=== PATIENT | female | born 1965 | race African-American/Black ===

== ENCOUNTER 2020-08-03 10:53 | Outpatient (REF) | payer MEDICAID, SELFPAY ==
--- NOTE | 2020-08-03 10:57 | MM_ITS ---
EXAMINATION: MM SCREENING DIGITAL BREAST TOMOSYNTHESIS, BILATERAL CLINICAL INFORMATION: Screening. Asymptomatic. The lifetime risk of breast cancer based on the Tyrer-Cuzick Model is 12%. COMPARISON: Mammography: 07/27/2019, 07/30/2017, 01/27/2017 TECHNIQUE: Digital breast tomosynthesis is performed in both the craniocaudal and mediolateral oblique views along with computer-aided detection (CAD). Synthesized 2D images are generated from the tomosynthesis. FINDINGS: There are scattered areas of fibroglandular density (ACR BI-RADS breast composition Category b). There are no significant masses, abnormal calcifications, or other abnormalities. Parenchymal pattern is similar to prior exams. No significant changes. MM/MM tomosynthesis screening BI IMPRESSION: No mammographic evidence of malignancy. ASSESSMENT: BI-RADS 1: Negative RECOMMENDATION: Routine annual mammography screening. This patient's information was entered into a reminder system with a target due date for their next mammogram.
== END 2020-08-03 10:54 | disposition home or self-care (01) ==
LOC: HO.MAMMO 10:53
PROVIDERS: PCP Pediatrics; Visit Provider Pediatrics
DX: Z12.31 Encounter for screening mammogram for malignant neoplasm of breast (principal)
CPT/HCPCS: 77063; 77067

== ENCOUNTER 2021-12-01 08:27 | Outpatient (REF) | payer MEDICAID, SELFPAY ==
--- NOTE | ~2021-12-01 | MM_ITS ---
EXAMINATION: MM SCREENING DIGITAL BREAST TOMOSYNTHESIS, BILATERAL CLINICAL INFORMATION: Screening. Asymptomatic. The lifetime risk of breast cancer based on the Tyrer-Cuzick Model is 11%. COMPARISON: Mammography: 08/03/2020, 07/27/2019, 07/30/2017, 01/27/2017, 01/15/2017 TECHNIQUE: Digital breast tomosynthesis is performed in both the craniocaudal and mediolateral oblique views along with computer-aided detection (CAD). Synthesized 2D images are generated from the tomosynthesis. FINDINGS: There are scattered areas of fibroglandular density (ACR BI-RADS breast composition Category b). There are no significant masses, abnormal calcifications, or other abnormalities. Parenchymal pattern is similar to prior studies. The axilla and skin contours are unremarkable. No significant changes. MM/MM tomosynthesis screening BI IMPRESSION: No mammographic evidence of malignancy. ASSESSMENT: BI-RADS 1: Negative RECOMMENDATION: Routine annual mammography screening. This patient's information was entered into a reminder system with a target due date for their next mammogram.
== END 2021-12-01 08:28 | disposition home or self-care (01) ==
LOC: HO.MAMMO 08:27
PROVIDERS: PCP Pediatrics; Visit Provider Pediatrics
DX: Z12.31 Encounter for screening mammogram for malignant neoplasm of breast (principal)
CPT/HCPCS: 77063; 77067

== ENCOUNTER 2023-06-16 09:13 | Outpatient (REF) | payer MEDICAID, SELFPAY ==
[2023-06-16 14:43] LABS: Basophils Percent Auto 0.2 % (0-2); Eosinophils Absolute Auto 0.1 X10*3/uL (0.0-0.4); Eosinophils Percent Auto 1.3 % (0-4); Hematocrit 34.4 % (37.0-47.0); Hemoglobin 11.7 g/dl (12.0-16.0); Imm Gran Abs Auto 0.01 X10*3/uL (0.00-0.03); Imm Gran Pct Auto 0.2 % (0.0-0.4); MANUAL DIFF FLAG SCAN; Mean Corpuscular Hemoglobin 28.5 pg (27.0-33.0); Mean Corpuscular Volume 83.7 fL (80.0-98.0); Mean Platelet Volume 11.6 fL (9.4-12.3); Monocytes Absolute Auto 0.3 X10*3/uL (0.1-1.2); Monocytes Percent Auto 6.5 % (2-11); Neutrophils Absolute Auto 1.4 x10*3/uL (2.0-8.3); Neutrophils Percent Auto 28.8 % (45-73); Platelet Count 178 X10*3/uL (160-400); Red Blood Count 4.11 X10*6/uL (4.20-5.50); Red Cell Distribution Width 15.5 % (11.0-16.0); SCAN SMEAR FLAG 1; White Blood Count 4.8 X10*3/uL (4.8-10.8)
[2023-06-16 14:51] LABS: Alanine Aminotransferase 8 U/L (0-31); Albumin Level 4.3 g/dL (3.5-5.0); Alkaline Phosphatase 42 U/L (39-117); Anion Gap 13 (12-20); Aspartate Amino Transferase 16 U/L (5-31); Bilirubin Direct 0.1 mg/dL (0.0-0.5); Bilirubin Total 0.4 mg/dL (0.0-1.0); Blood Urea Nitrogen 15 mg/dL (9-16); Carbon Dioxide 26 mmol/L (22-29); Chloride 105 mmol/L (96-108); Cholesterol 156 mg/dL (<200); Estimated Glomerular Filt Rate > 60; Glucose Random 95 mg/dL (60-115); HDL Cholesterol 47 mg/dL (>40); LDL Cholesterol Calculated 91 mg/dL (<100); Potassium 3.4 mmol/L (3.3-5.1); Sodium 141 mmol/L (135-145); Total Protein 8.1 g/dL (6.5-8.0); Triglycerides 93 mg/dL (<150)
[2023-06-16 15:03] LABS: SLIDE REVIEW VERIFIED
[2023-06-16 15:10] LABS: TSH reflex Free T4 4.07 uIU/mL (0.32-4.0); Vitamin D 25-OH Total 101.3 ng/mL (>30)
[2023-06-16 16:32] LABS: Free T4 (Free Thyroxine) 0.86 ng/dL (0.71-1.85)
== END 2023-06-16 09:14 | disposition home or self-care (01) ==
LOC: HO.CHCLDS 09:13
PROVIDERS: Visit Provider Pediatrics
DX: I10 Essential (primary) hypertension (principal); E11.9 Type 2 diabetes mellitus without complications; F17.200 Nicotine dependence, unspecified, uncomplicated
CPT/HCPCS: 36415; 80048; 80061; 80076; 82306; 84439; 84443; 85025

== ENCOUNTER 2024-07-11 09:57 | Outpatient (REF) | payer MEDICAID, SELFPAY ==
[2024-07-11 14:42] LABS: MANUAL DIFF FLAG NO
[2024-07-11 14:47] LABS: Basophils Percent Auto 0.4 % (0-2); Eosinophils Absolute Auto 0.1 X10*3/uL (0.0-0.4); Eosinophils Percent Auto 1.3 % (0-4); Hematocrit 33.6 % (37.0-47.0); Hemoglobin 11.6 g/dl (12.0-16.0); Imm Gran Abs Auto 0.01 X10*3/uL (0.00-0.03); Imm Gran Pct Auto 0.2 % (0.0-0.4); Lymphocytes Absolute Auto 2.2 X10*3/uL (1.2-4.9); Lymphocytes Percent Auto 41.5 % (20-40); Mean Corpuscular HGB Conc 34.5 g/dl (31.0-35.0); Mean Corpuscular Hemoglobin 29.2 pg (27.0-33.0); Mean Corpuscular Volume 84.6 fL (80.0-98.0); Mean Platelet Volume 11.3 fL (9.4-12.3); Monocytes Absolute Auto 0.4 X10*3/uL (0.1-1.2); Monocytes Percent Auto 7.8 % (2-11); Neutrophils Absolute Auto 2.6 x10*3/uL (2.0-8.3); Neutrophils Percent Auto 48.8 % (45-73); Platelet Count 171 X10*3/uL (160-400); Red Blood Count 3.97 X10*6/uL (4.20-5.50); Red Cell Distribution Width 15.7 % (11.0-16.0); White Blood Count 5.2 X10*3/uL (4.8-10.8)
[2024-07-11 14:58] LABS: Estimated Average Glucose 117 mg/dL; Hemoglobin A1C 113.7271 umol/L; Hemoglobin A1c % 5.7 % (<6.0); Total Hemoglobin (HGBA1C) 2941.6846 umol/L
[2024-07-11 15:04] LABS: Alanine Aminotransferase 27 U/L (0-31); Albumin Level 4.3 g/dL (3.5-5.0); Alkaline Phosphatase 50 U/L (39-117); Anion Gap 12 (12-20); Aspartate Amino Transferase 33 U/L (5-31); Bilirubin Direct 0.1 mg/dL (0.0-0.5); Bilirubin Total 0.3 mg/dL (0.0-1.0); Blood Urea Nitrogen 15 mg/dL (9-16); Calcium 10.3 mg/dL (8.4-10.2); Carbon Dioxide 26 mmol/L (22-29); Chloride 106 mmol/L (96-108); Cholesterol 142 mg/dL (<200); Estimated Glomerular Filt Rate 52; Glucose Fasting 107 mg/dL (60-99); HDL Cholesterol 53 mg/dL (>40); LDL Cholesterol Calculated 70 mg/dL (<100); Sodium 140 mmol/L (135-145); Total Protein 8.3 g/dL (6.5-8.0); Triglycerides 99 mg/dL (<150)
[2024-07-11 15:25] LABS: Creatinine Urine 98.18 mg/dL; Microalbum/Creatinine Ratio Ur 13.2 ug/mg cr (<30)
[2024-07-11 15:28] LABS: Folate 11.5 ng/mL (> or = 4.0); Vitamin B12 532 pg/mL (200-900)
== END 2024-07-11 09:58 | disposition home or self-care (01) ==
LOC: HO.CHCLDS 09:57
PROVIDERS: Visit Provider Pediatrics
DX: E11.9 Type 2 diabetes mellitus without complications (principal); I10 Essential (primary) hypertension; F17.200 Nicotine dependence, unspecified, uncomplicated
CPT/HCPCS: 36415; 80048; 80061; 80076; 82043; 82306; 82570; 82607; 82746; 83036; 84443; 85025

== ENCOUNTER → 2024-08-08 09:15 | Outpatient (BNV) | payer MEDICAID, SELFPAY | PROVIDERS: PCP Pediatrics; Visit Provider Internal Medicine | DX: Z12.31 Encounter for screening mammogram for malignant neoplasm of breast (principal) | CPT/HCPCS: 77063; 77067 ==

== ENCOUNTER 2024-08-08 09:16 | Outpatient (REF) | payer MEDICAID, SELFPAY | END 2024-08-08 09:17 | disposition home or self-care (01) | LOC: HO.MAMMO 09:16 | PROVIDERS: PCP Pediatrics; Visit Provider Pediatrics | DX: Z12.31 Encounter for screening mammogram for malignant neoplasm of breast (principal) | CPT/HCPCS: 77063; 77067 ==

== ENCOUNTER 2024-09-12 18:14 | Outpatient (REF) | payer MEDICAID, SELFPAY ==
--- OUTSIDE RECORDS SUMMARY | 2024-09-12 20:04 | XMS_ITS | Encounter Summary ---
Author Organization [employer] Address [address] [facility] [address] [place] [address] Care Team Providers Care City Tax Auditor Name Role Phone Margaret Bergeron MD Primary Care Provider [phone] Encounter Details Date Type Department Care Team (Latest Contact Info) Description 09/12/2024 Travel Social History Tobacco Use Types Packs/Day Years Used Date Smoking Tobacco: Every Day Cigarettes Passive Smoke Exposure: Never Smokeless Tobacco: Former Alcohol Answer Date Recorded How often do you have a drink containing alcohol ? 2 07/11/2024 How many drinks containing a lcohol do you have on a typical day when you are drinking? 2 07/11/2024 How often do you have six or more drinks on one occasion? 2 07/11/2024 Depression Answer Date Recorded Patient Health Questionnaire-9 Score 16 07/11/2024 Patient Health Questionnaire-9 Score 16 07/11/2024 Last PHQ-9: Questionnaire Data Not on file 1 09/11/2023 Housing Stability Answer Date Recorded What is your housing situation today? I have elieser cabrales 05/02/[address] you li ve. Do you have problems with any of the following? None of the above 05/02/2024 Food Insecurity Answer Date Recorded Within the past 12 months, y ou worried that your food would run out before you got money to buy more: Never True 05/02/2024 Within the past 12 months,th e food you bought just didn't last and you didn't have enough money to get more: Never True Transportation Answer Date Recorded In the past 12 months, has l ack of transportation kept you from medical appts, meetings, work or from getting things needed for daily living? No 05/02/2024 Utilities Answer Date Recorded In the past 12 months, has t he electric, gas, oil or water company threatened to shut off services in your home? No 05/02/2024 Depression Answer Date Recorded Patient Health Questionnaire-2 Score 6 07/11/2024 Internet Access Answer Date Recorded Internet Access Q1 Yes 05/02/2024 Internet Access Q2 Not on file 05/02/2024 Comments No Sex and Gender Information Value Date Recorded Sex Assigned at Female 05/18/2022 10:17 AM EDT Legal Sex Female 10:17 AM EDT Gender Identity Female 05/18/2022 10:17 AM EDT Sexual Orientation Straight 05/18/2022 10 :17 AM EDT documented as of this encounter Plan of Treatment Not on file documented as of this encounter Visit Diagnoses Not on filedocumented in this encounter Additional Health Concerns Assessment Noted Time PHQ-9 Depression Total Score: 16 024 9:20 AM EST documented as of this encounter Care Teams City Tax Auditor Relationship Specialty Start Date End Date Margaret Bergeron MD [address] [place] [address] PCP - General Family Medicine 07/19/18 [facility] 02/12/15 documented as of this encounter
--- OUTSIDE RECORDS SUMMARY | 2024-09-12 20:04 | XMS_ITS | Encounter Summary ---
Author Organization [employer] Address [address] [facility] [address] [place] [address] Care Team Providers Care Loom Operator Apprentice Name Role Phone Margaret Bergeron MD Primary Care Provider [phone] Reason for Visit * Reason Onset Date Comments FYI 08/24/2023 Encounter Details Date Type Department Care Team ([facility] st Contact Info) Description 08/24/2023 Telephone [facility] CHC MED & PEDS [address] [place] [address] Margaret Bergeron MD [address] [place] [address] FYI Social History Tobacco Use Types Packs/Day Years Used Date Smoking Tobacco: Every Day Cigarettes Passive Smoke Exposure: Never Smokeless Tobacco: Former Comments Unknown Sex and Gender Information Value Date Recorded Sex Assigned at Female 05/18/2022 10:17 AM EDT Legal Sex Female 10:17 AM EDT Gender Identity Female 05/18/2022 10:17 AM EDT Sexual Orientation Straight 05/18/2022 10 :17 AM EDT documented as of this encounter Miscellaneous Notes * Telephone Encounter - Jules Hoang - 08/24/2023 4:49 PM EST TC from Leora with [facility] informing that pt will be renewed for home care and medication management on Aug 29, 2023 for another 60 days for 2 times a week. Please contact Leora @ [phone] documented in this encounter Plan of Treatment Not on file documented as of this encounter Visit Diagnoses Not on filedocumented in this encounter Care Teams Loom Operator Apprentice Relationship Specialty Start Date End Date Margaret Bergeron MD [address] [place] [address] PCP - General Family Medicine 07/19/18 [facility] 02/12/15 documented as of this encounter
--- OUTSIDE RECORDS SUMMARY | 2024-09-12 20:04 | XMS_ITS | Encounter Summary ---
Author Organization [employer] Address [address] [facility] [address] [place] [address] Care Team Providers Care Pig Iron Loader Name Role Phone Margaret Bergeron MD Primary Care Provider [phone] Encounter Details Date Type Department Care Team (Late st Contact Info) Description 08/26/2022 Abstract [facility] MEDICINE [address] [place] [address] Margaret Bergeron MD [address] [place], [place] [phone] Social History Tobacco Use Types Packs/Day Years Used Date Smoking Tobacco: Never Assessed Comments Unknown Sex and Gender Information Value Date Recorded Sex Assigned at Female 05/18/2022 10:17 AM EDT Legal Sex Female 10:17 AM EDT Gender Identity Female 05/18/2022 10:17 AM EDT Sexual Orientation Straight 05/18/2022 10 :17 AM EDT COVID-19 Exposure Response Date Recorded In the last 10 days, have yo u been in contact with someone who was confirmed or suspected to have Coronavirus/COVID-19? No / Unsure 08/11/2022 10:58 AM EST documented as of this encounter Plan of Treatment Not on file documented as of this encounter Visit Diagnoses Not on filedocumented in this encounter Care Teams Pig Iron Loader Relationship Specialty Start Date End Date Margaret Bergeron MD [address] [place] [address] PCP - General Family Medicine 07/19/18 [facility] 02/12/15 documented as of this encounter
--- OUTSIDE RECORDS SUMMARY | 2024-09-12 20:04 | XMS_ITS | Encounter Summary ---
Author Organization [employer] Address [address] [facility] [address] [place] [address] Care Team Providers Care Tunnel Miner Name Role Phone Margaret Bergeron MD Primary Care Provider [phone] Encounter Details Date Type Department Care Team (Late st Contact Info) Description 08/26/2022 Abstract [facility] MEDICINE [address] [place] [address] Margaret Bergeron MD [address] [place], [place] [phone] Social History Tobacco Use Types Packs/Day Years [...] on filedocumented in this encounter Care Teams Tunnel Miner Relationship Specialty Start Date End Date Margaret Bergeron MD [address] [place] [address] PCP - General Family Medicine 07/19/18 [facility] 02/12/15 documented as of this encounter
--- OUTSIDE RECORDS SUMMARY | 2024-09-12 20:04 | XMS_ITS | Encounter Summary ---
Author Organization [employer] Address [address] [facility] [address] [place] [address] Care Team Providers Care Fitter Welder Name Role Phone Margaret Bergeron MD Primary Care Provider [phone] Encounter Details Date Type Department Care Team (Latest Contact Info) Description 09/12/2024 9:45 AM EST Procedure Visit [facility] CHC MED & PEDS [address] [place], [place] [id number] Margaret Bergeron MD [address] [place] [address] Encounter for gynecological examination (general) (routine) without abnormal findings (Primary Dx); Dietary counseling; Exercise counseling Social History Tobacco Use Types Packs/Day Years [...] AM EDT documented as of this encounter Last Filed Vital Signs Vital Sign Reading Time Taken Comments Blood Pressure 120/74 09/12/2024 9:52 AM EST Pulse 60 09/12/2024 9:52 AM EST Temperature 36.9 ??C (98.4 ??F) 09/12/2024 9:52 AM ES T Respiratory Rate 18 09/12/2024 9:52 AM EST Oxygen Saturation 98% 09/12/2024 9:52 AM EST Inhaled Oxygen Concentration - - Weight 68.1 kg (150 lb 3.2 oz) 09/12/2024 9:52 A M EST Height 162.6 cm (5' 4 ) 09/12/2024 9:52 AM EST Body Mass Index 25.78 09/12/2024 9:52 AM EST documented in this encounter Progress Notes * Margaret Bergeron MD - 09/12/2024 9:45 AM EST Subjective Belia Glaser is a 59 y.o. No obstetric history on file. woman here for pap. LMP:post menopausal Menses frequency:absent Menses concerns:N/A Desires within the next year:not applicable [facility] control: N/A Breast concerns:none Negative for: Menopausal symptoms negative for: hot flashes, night sweats, urinary incontinence and vaginal dryness. Review of Systems Review of Systems Constitutional: Negative for activity change, chills, fever and unexpected weight change. Respiratory: Negative for cough, shortness of breath and wheezing. Cardiovascular: Negative for chest pain, palpitations and leg swelling. Gastrointestinal: Negative for abdominal pain and blood in stool. Endocrine: Negative for polydipsia and polyuria. Genitourinary: Negative for decreased urine volume, difficulty urinating, dysuria and hematuria. Musculoskeletal: Negative for arthralgias and gait problem. Skin: Negative for color change and rash. Neurological: Negative for dizziness and headaches. Hematological: Negative for adenopathy. Psychiatric/Behavioral: Negative for dysphoric mood, hallucinations, sleep disturbance and suicidalideas. The patient is not nervous/anxious. No results found for: PAPPA No results found for: BARBARA Previous paps:negative 5 years ago Mammogram: negative 06/2024 Objective Visit Vitals BP 120/74 (BP Location: Right arm, Patient Position: Sitting, BP Cuff Size: Adult) Pulse 60 Temp 98.4 ??F (36.9 ??C) (Oral) Resp 18 Physical Exam Vitals reviewed. Exam conducted with a door paneler present. Constitutional: Appearance: Normal appearance. HENT: Head: Normocephalic. Cardiovascular: Rate and Rhythm: Normal rate and regular rhythm. Chest: Chest wall: No mass, deformity or tenderness. Breasts: Krzysztof Score is 5. Right: Normal. No bleeding, inverted nipple, mass, nipple discharge, skin change or tenderness. Left: Normal. No bleeding, inverted nipple, mass, nipple discharge, skin change or tenderness. Abdominal: Palpations: Abdomen is soft. Tenderness: There is no abdominal tenderness. Genitourinary: Exam position: Lithotomy position. Krzysztof stage (genital): 5. Labia: Right: No rash, lesion or injury. Left: No rash, lesion or injury. Vagina: Normal. Cervix: No cervical motion tenderness, friability, lesion or erythema. Uterus: Normal. Not tender. Adnexa: Right: No mass, tenderness or fullness. Left: No mass, tenderness or fullness. Lymphadenopathy: Upper Body: Right upper body: No axillary adenopathy. Left upper body: No axillary adenopathy. Neurological: Mental Status: She is alert and oriented to person, place, and time. Mental status is at baseline. Psychiatric: Mood and Affect: Affect is flat. Behavior: Behavior is cooperative. Problem List Items Addressed This Visit None Pap with HPV testing done STI testing offered but not needed due to no risk Preventative care and harm reduction discussed Call with results if abnormal.F/U as usual for DM ,etc.. documented in this encounter Miscellaneous Notes * Addendum Note - Maira Bell MA - 09/12/2024 9:45 AM ESTAddended by: MAIRA BELL on: 09/12/2024 02:09 PM Modules accepted: Orders documented in this encounter Plan of Treatment Scheduled Orders Name Type Priority Associated Diagnoses Orde r Schedule Pap Smear Pathology and Cytology Routine Encounter for gynecological examination (general) (routine) without abnormal findings Ordered: 09/12/2024 documented as of this encounter Visit Diagnoses Diagnosis Encounter for gynecological examination (general) (routine) without abnormal findings- Primary Dietary counseling Dietary surveillance and counseling Exercise counseling documented in this encounter Additional Health Concerns Assessment Noted Time PHQ-9 Depression Total Score: 16 024 9:20 AM EST documented as of this encounter Care Teams Fitter Welder Relationship Specialty Start Date End Date Margaret Bergeron MD [address] [place] [address] PCP - General Family Medicine 07/19/18 [facility] 02/12/15 documented as of this encounter
--- OUTSIDE RECORDS SUMMARY | 2024-09-12 20:04 | XMS_ITS | Encounter Summary ---
Author Organization [employer] Address [address] [facility] [address] [place] [address] Care Team Providers Care Marshmallow Machine Operator Name Role Phone Margaret Bergeron MD Primary Care Provider [phone] Encounter Details Date Type Department Care Team (Late st Contact Info) Description 02/15/2024 Telephone [facility] MEDICINE [address] [place], [place] [phone] Margaret Bergeron MD [address] [place] [address] Social History Tobacco Use Types Packs/Day Years [...] on filedocumented in this encounter Care Teams Marshmallow Machine Operator Relationship Specialty Start Date End Date Margaret Bergeron MD [address] [place] [address] PCP - General Family Medicine 07/19/18 [facility] 02/12/15 documented as of this encounter
--- OUTSIDE RECORDS SUMMARY | 2024-09-12 20:04 | XMS_ITS | Encounter Summary ---
Author Organization [employer] Address [address] [facility] [address] [place] [address] Care Team Providers Care Welder Operator Name Role Phone Margaret Bergeron MD Primary Care Provider [phone] Reason for Visit * Reason Onset Date Comments Chart Prep 09/11/2024 Encounter Details Date Type Department Care Team ([facility] st Contact Info) Description 09/11/2024 Telephone [facility] CHC MED & PEDS [address] [place] [address] Margaret eBrgeron MD [address] [place] [address] Chart Prep Social History Tobacco Use Types Packs/Day Years [...] encounter Miscellaneous Notes * Telephone Encounter - Chika Bell MA - 09/11/2024 2:58 PM EST Chart Prep Labs: done Images: done Vaccines due: yes Referrals: complete Screenings: STI screening Overdue care gaps: Glucose documented in this encounter Plan of Treatment Not on file documented as of this encounter Visit Diagnoses Not on filedocumented in this encounter Additional Health Concerns Assessment Noted Time PHQ-9 Depression Total Score: 16 024 9:20 AM EST documented as of this encounter Care Teams Welder Operator Relationship Specialty Start Date End Date Mragaret Bergeron MD [address] [place] [address] PCP - General Family Medicine 07/19/18 [facility] 02/12/15 documented as of this encounter
--- OUTSIDE RECORDS SUMMARY | 2024-09-12 20:04 | XMS_ITS | Encounter Summary ---
Author Organization [employer] Address [address] [facility] [address] [place] [address] Care Team Providers Care Leather Etcher Name Role Phone Margaret Bergeron MD Primary Care Provider [phone] Reason for Visit * Reason Onset Date Comments Med Refill 08/21/2024 Encounter Details Date Type Department Care Team ([facility] st Contact Info) Description 08/21/2024 Refill [facility] CHC MED & PEDS [address] [place] [address] Margaret Bergeron MD [address] [place] [address] Social History Tobacco Use Types Packs/Day Years [...] encounter Miscellaneous Notes * Telephone Encounter - Belia Mejia LPN - 08/21/2024 1:07 PM EST Next appointment 09/12/24. documented in this encounter Plan of Treatment Not on file documented as of this encounter Visit Diagnoses Not on filedocumented in this encounter Additional Health Concerns Assessment Noted Time PHQ-9 Depression Total Score: 16 024 9:20 AM EST documented as of this encounter Care Teams Leather Etcher Relationship Specialty Start Date End Date Margaret Bergeron MD [address] [place] [address] PCP - General Family Medicine 07/19/18 [facility] 02/12/15 documented as of this encounter
--- OUTSIDE RECORDS SUMMARY | 2024-09-12 20:04 | XMS_ITS | Clinical Summary ---
Author Organization [employer] Address [address] [facility] [address] [place] [address] Care Team Providers Care Bleach Packer Name Role Phone Margaret Bergeron MD Primary Care Provider [phone] Allergies No known active allergies Medications traZODone (Desyrel) 100 MG tablet take 2 Tablet by Oral route once a day Active cholecalcifero l (Vitamin D-3) 50 MCG (1999) tablet 10/02/19 23 Active aspirin 81 MG EC tabletIndicati ons:Type 2 diabetes mellitus without complication, without long-term current use of insulin ([facility]) Take 1 tablet (81 mg) by mouth Once per day. 90 tablet 2 02/25/20 24 Active atorvastatin (Lipitor) 20 MG tablet Take 1 tablet (20 mg) by mouth Once per day. 30 tablet 11 02/25/20 24 Active melatonin 5 MG tablet 08/10/19 24 Active lamoTRIgine (LaMICtal) 200 MG tablet 08/13/19 24 Active prazosin (Minipress) 2 MG capsule 08/16/19 24 Active risperiDONE (RisperDAL) 2 MG tablet 08/10/19 24 Active metFORMIN XR (Glucophage-XR ) 750 MG 24 hr tablet TAKE 1 TABLET BY MOUTH WITH EVENING MEAL 90 tablet 1 08/21/19 25 Active lisinopril-hyd roCHLOROthiazi de 10-12.5 MG tablet TAKE 1 TABLET BY MOUTH EVERY DAY 90 tablet 1 08/21/19 25 Active lisinopril-hyd roCHLOROthiazi de 10-12.5 MG tablet Take 1 tablet by mouth Once per day. 90 tablet 1 02/25/20 24 025 Discontinued(Re order (will not trigger notification to Pharmacy)) metFORMIN XR (Glucophage-XR ) 750 MG 24 hr tablet Take 1 tablet (750 mg) by mouth with evening meal. 90 tablet 1 02/25/20 24 025 Discontinued(Re order (will not trigger notification to Pharmacy)) Active Problems Problem Noted Date Diagnosed Date Type 2 diabetes mellitus wit hout complication, without long-term current use of insulin 11/26/2022 Benign essential hypertension 09/24/2015 Insomnia 04/17/2013 Tobacco dependence syndrome 01/19/2012 Depressive disorder 01/19/2012 Encounters Date Type Department Care Team Description 09/12/2024 9:45 AM EST Procedure Visit [facility] [address] [place] [address] Margaret Bergeron MD Encounter for gynecological examination (general) (routine) without abnormal findings (Primary Dx); Dietary counseling; Exercise counseling 09/12/2024 Travel 09/11/2024 Telephone [facility] [address] [place] [address] Margaret Bergeron MD Chart Prep 08/21/2024 Refill [facility] [address] [place] [address] Margaret Bergeron MD 07/11/2024 9:15 AM EST Office Visit [facility] [address] [place] [address] Margaret Bergeron MD Screening for colon cancer (Primary Dx); Dietary counseling; Exercise counseling; Routine general medical examination at a health care facility; Type 2 diabetes mellitus without complication, without long-term current use of insulin ([facility]); Depressive disorder; Benign essential hypertension 07/11/2024 Travel 07/10/2024 Telephone [facility] [address] [place] [address] Margaret Bergeron MD Chart Prep 07/04/2024 Patient Outreach [facility] [address] [place] [address] Margaret Bergeron MD Pre-visit Planning ([facility] unable to reach [facility]) from Last 3 Months Immunizations Name Administration Dates Next Due Tdap 02/20/2015 Zoster, Recombinant 08/11/2022,06/03/2022 Family History Medical History Relation Name Comments Cancer Brother Breast cancer Sister Relation Name Status Comments Brother Sister Social History Tobacco Use Types Packs/Day Years Used Date Smoking Tobacco: Every Day Cigarettes Passive Smoke Exposure: Never Smokeless Tobacco: Former Tobacco Cessation:Ready to Q uit: Not Asked; Counseling Given: Not Answered Alcohol Answer Date Recorded How often do [...] Orientation Straight 05/18/2022 10 :17 AM EDT Last Filed Vital Signs Vital Sign Reading [...] Mass Index 25.78 09/12/2024 9:52 AM EST Plan of Treatment Health Maintenance Due Date Last Done Comments CT Colonography 1965 Colonoscopy 1965 Colorectal Cancer Screening 1965 FIT DNA/Cologuard 1965 FIT 1965 FOBT 1965 HIV Screening 1965 Sigmoidoscopy 1965 Hepatitis C Screening 1981 Hepatitis A Vaccines (1 of 2 - Risk 2-dose series) 1982 Pneumococcal Vaccine: 50+ Years (1 of 2 - PCV) 1982 Pap Smear 1984 COVID-19 Vaccine ( - season) 2024 Influenza Vaccine (#1) 2024 Cervical Cancer Screening 08/29/2024 HPV/Cotest 08/29/2024 08/29/2019 Diabetes: Hemoglobin A1C 10/09/2024 024, 06/02/2023, 11/26/2022, Additional history exists Depression Monitoring (PHQ-9) 01/09/2025 07/11/2024, 07/11/2024 DTaP/Tdap/Td Vaccines (2 - Td or Tdap) 02/20/2025 02/20/2015 Eye Exam 04/12/2025 04/12/2023, 03/20, 04/12/2023, Additional history exists SDOH Screening 05/02/2025 05/02/2024 Alcohol/Substance Use Screening 07/11/2025 07/11/2024 Depression Screening 07/11/2025 07/11/2024, 12/24/20 24 Diabetes: Foot Exam 07/11/2025 07/11/2024, 07/11/2024, 07/11/2024, Additional history exists Diabetes: Urine Protein Screening 07/11/2025 07/11/2024, 06/03/2022, 09/27/2020 Lipid Panel 07/11/2025 07/11/2024, 05/20, 06/03/2022, Additional history exists Tobacco Screening 07/11/2025 07/11/2024 Mammogram 08/08/2026 08/08/2024, 11/16, 08/03/2020, Additional history exists RSV Patients and Patients Aged 60 years or older (1 - 1-dose 75+ series) 2038 Zoster Vaccines Completed 08/11/2022, 06/03/2022 HIB Vaccines Aged Out No longer eligi ble based on patient's age to complete this topic HPV Vaccines Aged Out No longer eligi ble based on patient's age to complete this topic Hepatitis B Vaccines Aged Out No long er eligible based on patient's age to complete this topic IPV Vaccines Aged Out No longer eligi ble based on patient's age to complete this topic Meningococcal Vaccine Aged Out No josefa kade eligible based on patient's age to complete this topic RSV under 20 months Aged Out No longe r eligible based on patient's age to complete this topic Rotavirus Vaccines Aged Out No longer eligible based on patient's age to complete this topic Procedures Procedure Name Priority Date/Time Associated Diagnosis Comments BI MAMMOGRAM SCREENING TOMOSYNTHESIS BILATERAL Routine 08/08/2024 9:25 AM EST Screening for colon cancer ALBUMIN, RANDOM URINE W/CREATININE Routine 07/11/2024 10:05 AM EST Type 2 diabetes mellitus without complication, without long-term current use of insulin (CMS/HCC) Benign essential hypertension Tobacco dependence syndrome HEPATIC FUNCTION PANEL Routine 9:58 AM EST Type 2 diabetes mellitus without complication, without long-term current use of insulin (CMS/HCC) Benign essential hypertension Tobacco dependence syndrome HEMOGLOBIN A1C Routine 07/11/2024 9:58 AM EST Type 2 diabetes mellitus without complication, without long-term current use of insulin (CMS/HCC) Benign essential hypertension Tobacco dependence syndrome VITAMIN B12/FOLATE, SERUM PANEL Routine 07/11/2024 9:58 AM EST Type 2 diabetes mellitus without complication, without long-term current use of insulin (CMS/HCC) Benign essential hypertension Tobacco dependence syndrome VITAMIN D,25-OH,TOTAL,IA Routine 07/11/2024 9:58 AM EST Type 2 diabetes mellitus without complication, without long-term current use of insulin (CMS/HCC) Benign essential hypertension Tobacco dependence syndrome TSH W/REFLEX TO FT4 Routine 07/11/2024 9 :58 AM EST Type 2 diabetes mellitus without complication, without long-term current use of insulin (CMS/HCC) Benign essential hypertension Tobacco dependence syndrome LIPID PANEL, STANDARD Routine 07/11/2024 9:58 AM EST Type 2 diabetes mellitus without complication, without long-term current use of insulin (CMS/HCC) Benign essential hypertension Tobacco dependence syndrome CBC WITH AUTO DIFFERENTIAL Routine 07/11/2024 9:58 AM EST Type 2 diabetes mellitus without complication, without long-term current use of insulin (CMS/HCC) Benign essential hypertension Tobacco dependence syndrome BASIC METABOLIC PANEL, FASTING Routine 07/11/2024 9:58 AM EST Type 2 diabetes mellitus without complication, without long-term current use of insulin (CMS/HCC) Benign essential hypertension Tobacco dependence syndrome VickyZZ HISTORICAL HPV MRNA E6/E7 Routine 08/29/2019 9:05 AM EST from Last 3 Months or Most Recently Relevant to Health Maintenance Results * BI Mammogram Screening Tomosynthesis Bilateral (08/08/2024 9:25 AM EST) Anatomical Region Laterality Modality Breast Bilateral Mammography 08/08/2024 9:25 AM EST Narrative 08/16/2024 1:47 PM EST ? [facility] ? [address] ?[place] [address] ? Mammography Report ? Signed ? Patient: Glaser,Belia ?MR#: [id number] ?? [id number] ? : 1965 ?Acct:[id number] ? Age/Sex: 59 / F ?ADM Date: 08/08/24 ? Loc: HO.MAMMO ? Attending Dr: Margaret Bergeron MD ? Ordering Physician: Margaret Bergeron MD ?Results: 1Ne ?? gative ? Date of Service: 08/08/24 ?Follow Up: 1 Year From Orig ?? inal Mammogram ? Procedure(s): MM tomosynthesis screening BI ?? Accession Number(s): [id number] ? cc: Mragaret Bergeron MD ? EXAMINATION: ?? MM SCREENING DIGITAL BREAST TOMOSYNTHESIS, BILATERAL ? CLINICAL INFORMATION: ? Screening. Asymptomatic. ? COMPARISON: ?? Mammography: Comparison is made with available priors ? TECHNIQUE: ?? Digital breast mammography with tomosynthesis is performed in both the ?? craniocaudal and mediolateral oblique views along with computer-aided ?? detection (CAD). ? FINDINGS: ?? There are scattered areas of fibroglandular density (ACR BI-RADS breast ?? composition Category b). ? There are no significant masses, abnormal calcifications, or other ?? abnormalities. ? MM/MM tomosynthesis screening BI ?? IMPRESSION: ?? No mammographic evidence of malignancy. ? ASSESSMENT: ? BI-RADS BI-RADS 1 - Negative ? RECOMMENDATION: ?? Routine annual mammography screening. ? 1 year F/U ? This examination should not preclude the clinical evaluation of a ?? suspicious palpable abnormality. ? This patient's information was entered into a reminder system with a ?? target due date for their next mammogram. ? Electronically signed by: ??Rina Atkins DO ??08/16/2024 01:44 PM EST ?? RP ? Dictated By: ?Rina Atkins DO ? Signed By: ?<Electronically signed by Rina Atkins, DO in OV> ? 08/16/24 1344 ? DD/ 4 ? TD/TT: 08/08/24 0937 ? Roof Bolter Operator: ? Procedure Note Dondanielter, Image - [facility] [address] [place] [address] Mammography Report Signed Patient: Belia GlaserMR#: [id number] : 1965Acct:[id number] Age/Sex: 59 / FADM Date: 08/08/24 Loc: [facility].MAMMO Attending Dr: Margaret Bergeron MD Ordering Physician: Margaret Bergeronesults: 1Ne gative Date of Service: 08/08/24Follow Up: 1 Year From Orig inal Mammogram Procedure(s): MM tomosynthesis screening BI Accession Number(s): [id number] cc: Margaret Bergeron MD EXAMINATION: MM SCREENING DIGITAL BREAST TOMOSYNTHESIS, BILATERAL CLINICAL INFORMATION: Screening. Asymptomatic. COMPARISON: Mammography: Comparison is made with available priors TECHNIQUE: Digital breast mammography with tomosynthesis is performed in both the craniocaudal and mediolateral oblique views along with computer-aided detection (CAD). FINDINGS: There are scattered areas of fibroglandular density (ACR BI-RADS breast composition Category b). There are no significant masses, abnormal calcifications, or other abnormalities. MM/MM tomosynthesis screening BI IMPRESSION: No mammographic evidence of malignancy. ASSESSMENT: BI-RADS BI-RADS 1 - Negative RECOMMENDATION: Routine annual mammography screening. 1 year F/U This examination should not preclude the clinical evaluation of a suspicious palpable abnormality. This patient's information was entered into a reminder system with a target due date for their next mammogram. Electronically signed by: Rina Atkins DO 08/16/2024 01:44 PM EST RP Dictated By: Rina Atkins DO Signed By: <Electronically signed by Rina Atkins DO in OV> 08/16/24 1344 DD/ 0925 TD/TT: 08/08/24 0937 Roof Bolter Operator: Margaret Bergeron MD IMG BI PROCEDURES Edited Resu lt - Final * Albumin, Random Urine W/Creatinine (07/11/2024 10:05 AM EST) Creatinine, Urine 98.18 mg/dL [facility] Microalbumin Urine 13.0 mg/L [facility] Microalbum Creatinine Ratio Ur 13.2 <30 ug/mg cr [facility] Comment:Albumin/Creatinine R atio Reference Ranges: Normal: < 30 ug/mg creatinine Microalbuminuria: 30 - 300 ug/mg creatinineClinical Albuminuria: > 300 ug/mg creatinine Urine (Urine, Random) 07/11/2024 10:05 AM EST 07/11/2024 2:15 PM EST Margaret Bergeron MD LAB URINE ORDERABLES Final Re sult [facility] [address] [place] [address] [phone] * (ABNORMAL) Basic Metabolic Panel, Fasting (07/11/2024 9:58 AM EST) Sodium 140 135 - 145 mmol/L [facility] Potassium 4.0 3.3 - 5.1 mmol/L [facility] Chloride 106 96 - 108 mmol/L [facility] Carbon Dioxide 26 22 - 29 mmol/L [facility] Anion Gap 12 12 - 20 [facility] Urea Nitrogen (BUN) 15 9 - 16 mg/dL [facility] Creatinine, Serum 1.07 0.5 - 1.4 mg/dL [facility] Estimated Glomerular Filt Rate 52 [facility] Comment:Chronic Kidney Disea se: Estimated GFR < 60 mL/min/1.57c4Faemsx Kidney Disease: Estimated GFR < 15 mL/min/1.73m2 Glucose Fasting 107(H) 60 - 99 mg/dL [facility] Comment:A fasting glucose fr om 100-125 mg/dl is considered impaired(pre-diabetes). Calcium 10.3(H) 8.4 - 10.2 mg/dL [facility] Blood Venous blood specimen / Unknown 07/11/2024 9:58 AM EST 07/11/2024 2:25 PM EST us Margaret Bergeron MD LAB BLOOD ORDERABLES Final Re sult [facility] [address] [place] [phone] * Vitamin D, 25-Hydroxy, Total, Immunoassay (07/11/2024 9:58 AM EST) Vitamin D 25-OH Total 77.0 >30 ng/mL [facility] Comment:Health Based Referen ce Values*< 20 ng/mL Lhgrqmugt17-42 ng/mL Insufficient> 30 ng/mL Sufficient*Everett BALDERRAMA. N Engl J Med. 2007;357:266-280Care must be taken in interpreting Vitamin D results fromdifferent laboratories and methodologies. Published datademonstrated that results from patients undergoinghemodialysis may show a negative bias when tested withvarious automated 25-OH vitamin D assays when compared toLC-MS/MS.When testing samples from patients whose predominant form ofVitamin D is Vitamin D2, such as patients receiving VitaminD2 supplementation, results that are subtherapeutic shouldbe confirmed with another method such as LC-MS/MS. Blood Venous blood specimen / Unknown 07/11/2024 9:58 AM EST 07/11/2024 2:25 PM EST us Margaret Bergeron MD LAB BLOOD ORDERABLES Final Re sult Performing Organization Address [facility]/ZIP Co de Phone Number [facility] [address] [place] [phone] * Vitamin B12/Folate, Serum Panel (07/11/2024 9:58 AM EST) Vitamin B12 532 200 - 900 pg/mL [facility] Comment:NORMAL 200-900 PG/ML INDETERMINATE 160-199 PG/ML DEFICIENT < 160 PG/ML Folate 11.5 > or = 4.0 ng/mL [facility] Comment:Reference Values:> o r = 4.0 ng/mL< 4.0 ng/mL suggests folate deficiency Methotrexate, aminopterin and folinic acid(leucovorin) are chemotherapeutic agents whose molecularstructures are similar to folate; therefore, the Architectfolate assay cannot be used for patients using these drugs. Blood Venous blood specimen / Unknown 07/11/2024 9:58 AM EST 07/11/2024 2:25 PM EST us Margaret Bergeron MD LAB BLOOD ORDERABLES Final Re sult Performing Organization Address [facility] Co de Phone Number [facility] [address] [place] [phone] * TSH W/Reflex to FT4 (07/11/2024 9:58 AM EST) TSH reflex Free T4 2.30 0.32 - 4.0 uIU/mL [facility] Blood Venous blood specimen / Unknown 07/11/2024 9:58 AM EST 07/11/2024 2:25 PM EST us Margaret Bergeron MD LAB BLOOD ORDERABLES Final Re sult Performing Organization Address City/[facility]/ZIP Co de Phone Number [facility] [address] [place] [phone] * (ABNORMAL) CBC auto differential (07/11/2024 9:58 AM EST) White Blood Count 5.2 4.8 - 10.8 X10*3/uL [facility] Red Blood Count 3.97(L) 4.20 - 5.50 X10*6/uL [facility] Hemoglobin 11.6(L) 12.0 - 16.0 g/dl [facility] Hematocrit 33.6(L) 37.0 - 47.0 % [facility] Mean Corpuscular Volume 84.6 80.0 - 98.0 fL [facility] Mean Corpuscular Hemoglobin 29.2 27.0 - 33.0 pg [facility] Mean Corpuscular HGB Conc 34.5 31.0 - 35.0 g/dl [facility] Red Cell Distribution Width 15.7 11.0 - 16.0 % [facility] Platelet Count 171 160 - 400 X10*3/uL [facility] Mean Platelet Volume 11.3 9.4 - 12.3 fL [facility] Neutrophils Percent Auto 48.8 45 - 73 % [facility] Imm Gran Pct Auto 0.2 0.0 - 0.4 % [facility] Lymphocytes Percent Auto 41.5(H) 20 - 40 % [facility] Monocytes Percent Auto 7.8 2 - 11 % [facility] Eosinophils Percent Auto 1.3 0 - 4 % [facility] Basophils Percent Auto 0.4 0 - 2 % [facility] NRBC Pct Auto 0.0 0.0 - 0.2 /100WBC [facility] Neutrophils Absolute Auto 2.6 2.0 - 8.3 x10*3/uL [facility] Imm Gran Abs Auto 0.01 0.00 - 0.03 X10*3/uL [facility] Lymphocytes Absolute Auto 2.2 1.2 - 4.9 X10*3/uL [facility] Monocytes Absolute Auto 0.4 0.1 - 1.2 X10*3/uL [facility] Eosinophils Absolute Auto 0.1 0.0 - 0.4 X10*3/uL [facility] Basophils Absolute Auto 0.0 0.0 - 0.2 X10*3/uL [facility] NRBC Abs Auto 0.000 0.0 - 0.012 X10*3/uL [facility] Blood Venous blood specimen / Unknown 07/11/2024 9:58 AM EST 07/11/2024 2:25 PM EST Margaret Bergeron MD LAB BLOOD ORDERABLES Final Re sult Performing Organization Address [facility] Co de Phone Number [facility] [address] [place] [phone] * Hemoglobin A1c (07/11/2024 9:58 AM EST) Hemoglobin A1c 5.7 <6.0 % [facility] Comment:Hemoglobin A1C Refer ence Range Adults: 4.8 - 6.0 % Non diabetic: < 6.0 % Goal: < 7.0 %Additional Action Suggested: > 8.0 %Note: Hemoglobin A1c results are invalid for patients with abnormal amounts of HbF. Blood transfusions may impact the HbA1c concentration in the patient sample. Estimated Average Glucose 117 mg/dL [facility] Comment:eAG = Estimated ave rage glucose which is %A1C expressed asaverage glucose, using the formula of the R1E-RcffgrmWuwpaqf Glucose study (ADAG), Diabetes Care, Vol.31,#8,Feb. 2007 Blood Venous blood specimen / Unknown 07/11/2024 9:58 AM EST 07/11/2024 2:25 PM EST Margaret Bergeron MD LAB BLOOD ORDERABLES Final Re sult Performing Organization Address [facility] Co de Phone Number [facility] [address] [place] [phone] * (ABNORMAL) Hepatic Function Panel (07/11/2024 9:58 AM EST) Bilirubin, Total 0.3 0.0 - 1.0 mg/dL [facility] Bilirubin, Direct 0.1 0.0 - 0.5 mg/dL [facility] Aspartate Amino Transferase 33(H) 5 - 31 U/L [facility] Alanine Aminotransferase 27 0 - 31 U/L [facility] Total Protein 8.3(H) 6.5 - 8.0 g/dL [facility] Albumin Level 4.3 3.5 - 5.0 g/dL [facility] Alkaline Phosphatase 50 39 - 117 U/L [facility] Blood Venous blood specimen / Unknown 07/11/2024 9:58 AM EST 07/11/2024 2:25 PM EST us Margaret Bergeron MD LAB BLOOD ORDERABLES Final Re sult [facility] [address] [place] [phone] * Lipid Panel, Standard (07/11/2024 9:58 AM EST) Pathologist [facility] Triglycerides 99 <150 mg/dL [facility] Comment:Desirable Triglyceri de: less than 150 mg/dLBorderline High Triglyceride 150-199 mg/dLHigh Triglyceride: 200-499 mg/dLVery High Triglyceride: greater than or equal to 5OO mg/dL Cholesterol 142 <200 mg/dL [facility] Comment:Desirable Cholestero l: less than 200 mg/dLBorderline High Cholesterol: 200-239 mg/dLHigh Cholesterol: greater than 239 mg/dL LDL Cholesterol Calculated 70 <100 mg/dL [facility] Comment:Desirable LDL: less than 100 mg/dLNear Optimal/Above Optimal LDL: 110- 129 mg/dLBorderline High LDL: 130-159 mg/dLHigh LDL: 160-189 mg/dLVery High LDL: greater than or equal to 190 mg/dL HDL Cholesterol 53 >40 mg/dL [facility] Comment:Desirable HDL: great er than 40 mg/dL Note: This HDL assay may give artificially low results in patients with liver disease. Blood Venous blood specimen / Unknown 07/11/2024 9:58 AM EST 07/11/2024 2:25 PM EST us Margaret Bergeron MD LAB BLOOD ORDERABLES Final Re sult Performing Organization Address City/[facility]/ZIP Co de Phone Number [facility] [address] [place] [phone] [phone] * HPV mRNA E6/E7 (08/29/2019 9:05 AM EST) HPV mRNA E6/E7 Not Detected NOT DETECTED [facility] Comment: This test was performed using the APTIMA(R) HPV Assay ([employer] This assay detects E6/E7 viral messenger RNA (mRNA) from 14 high-risk HPV types (16,18,31,33,35,39,45,51, 52,56,58,59,66,68). For additional information please refer to: http://education.[employer]/faq/BWX605i8 (This link is being provided for informational/ educational purposes only.) The analytical performance characteristics of this assay have been determined by [employer] [place], [place]. The modifications have not been cleared or approved by the FDA. This assay has been validated pursuant to the CLIA regulations and is used for clinical purposes. Test Performed by [facility], [facility], [address] [place] [address] Sorin Silverman M.D., Ph.D., Director of Laboratories , CLIA [id number] Please note: ??Effective 03/30/2016, HPV testing will be performed using [employer] APTIMA test which targets mRNA. Detecting mRNA instead of DNA, as in older methods, offers significant improvements in specificity. 08/29/2019 9:05 AM EST Dalia Feng CNM HISTORICAL/NON ORDERABLE LABS Final Result Performing Organization Address City/[facility]/ZIP Co de Phone Number [facility] [place] [address], from Last 3 Months or Most Recently Relevant to Health Maintenance Insurance [facility] C3 Care Teams Bleach Packer Relationship Specialty Start Date End Date Margaret Bergeron MD [address] [place] [phone] PCP - General Family Medicine 07/19/18 [facility] 02/12/15
[2024-09-19 11:03] LABS: HPV Genotype 16 Negative (Negative); HPV Genotype 18 Negative (Negative); HPV High Risk Negative (Negative)
== END 2024-09-12 18:15 | disposition home or self-care (01) ==
LOC: HO.CHCLNP 18:14
PROVIDERS: Visit Provider Pediatrics
DX: Z01.419 Encounter for gynecological examination (general) (routine) without abnormal findings (principal); Z11.51 Encounter for screening for human papillomavirus (HPV)
CPT/HCPCS: 87626; 88175

== ENCOUNTER 2025-03-30 09:26 | Outpatient (REF) | payer MEDICAID, SELFPAY ==
--- OUTSIDE RECORDS SUMMARY | 2025-03-30 10:36 | XMS_ITS | Clinical Summary ---
Author Organization [employer] Address [address] [facility] 7t [place] [address] Care Team Providers Care Oracle Reports Developer Name Role Phone Margaret Bergeron MD Primary Care Provider [phone] Allergies No known active allergies Medications traZODone (Desyrel) 100 MG tablet take 2 Tablet by Oral route once a day Active cholecalciferol (Vitamin D-3) 50 MCG (1999) tablet 10/01/2022 Active melatonin 5 MG tablet 08/10/2023 Active lamoTRIgine (LaMICtal) 200 MG tablet 08/13/2023 Active prazosin (Minipress) 2 MG capsule 08/16/2023 Active risperiDONE (RisperDAL) 2 MG tablet 08/10/2023 Active metFORMIN XR (Glucophage-XR) 750 MG 24 hr tablet TAKE 1 TABLET (750 MG) BY MOUTH WITH EVENING MEAL. 30 tablet 11 09/19/2024 Active lisinopril-hydr oCHLOROthiazide 10-12.5 MG tablet TAKE 1 TABLET BY MOUTH ONCE PER DAY. 30 tablet 11 09/19/2024 Active aspirin 81 MG EC tabletIndicatio ns:Type 2 diabetes mellitus without complication, without long-term current use of insulin (CMS/HCC) Take 1 tablet (81 mg) by mouth Once per day. 90 tablet 2 11/20/2024 Active atorvastatin (Lipitor) 20 MG tablet TAKE 1 TABLET (20 MG) BY MOUTH ONCE PER DAY. 30 tablet 5 02/21/2025 Active Active Problems Problem Noted Date Diagnosed Date Type 2 diabetes mellitus wit hout complication, without long-term current use of insulin 11/26/2022 Benign essential hypertension 09/24/2015 Insomnia 04/17/2013 Tobacco dependence syndrome 01/19/2012 Depressive disorder 01/19/2012 Encounters Date Type Department Care Team Description 02/20/2025 Refill [facility] MEDICINE [address] [place] [address] Margaret Bergeron MD from Last 3 Months Immunizations Immunization Administration Dates Next Due Tdap 02/20/2015 Zoster, [...] is your housing situation today? I have leieser cabrales 05/02/[address] you [...] 58 09/12/2024 9:52 AM EST Temperature 36.9 C (98.4 F) 09/12/2024 9:52 AM EST Respiratory Rate 18 09/12/2024 9:52 AM EST Oxygen Saturation 98% 09/12/2024 9:52 AM EST Inhaled Oxygen Concentration - - Weight 68.1 kg (150 lb 3.2 oz) 09/12/2024 9:52 A M EST Height 162.6 cm (5' 4 ) 09/12/2024 9:52 AM EST Body Mass Index 25.78 09/12/2024 9:52 AM EST Plan of Treatment Upcoming Encounters Date Type Department Care Team ([facility] st Contact Info) Description 05/23/2025 9:00 AM EST Office Visit [facility] CHC MED & PEDS [address] [place] [address] Margaret Bergeron MD [address] [place] [address] Health Maintenance Due Date Last Done Comments CT Colonography 1965 Colonoscopy 1965 Colorectal Cancer Screening 1965 FIT DNA/Cologuard 1965 FIT 1965 FOBT 1965 HIV Screening 1965 Sigmoidoscopy 1965 Hepatitis C Screening 1981 Pneumococcal Vaccine: 50+ Years (1 of 2 - PCV) 1982 Depression Monitoring 01/09/2025 07/11/2024, 024 Diabetes: Hemoglobin A1C 01/09/2025 024, 06/02/2023, 11/26/2022, Additional history exists DTaP/Tdap/Td Vaccines (2 - Td or Tdap) 02/20/2025 02/20/2015 COVID-19 Vaccine ( - season) 2025 Influenza Vaccine (#1) 2025 Eye Exam 04/12/2025 04/12/2023, 03/20, 04/12/2023, Additional history exists SDOH Screening 05/02/2025 05/02/2024 Alcohol/Substance Use Screening 07/11/2025 07/11/2024 Diabetes: Foot Exam 07/11/2025 07/11/2024, 07/11/2024, 07/11/2024, Additional history exists Diabetes: Urine Protein Screening 07/11/2025 07/11/2024, 06/03/2022, 09/27/2020 Disability Screening 07/11/2025 07/11/2024 Lipid Panel 07/11/2025 07/11/2024, 05/20, 06/03/2022, Additional history exists Tobacco Screening 07/11/2025 07/11/2024 Mammogram 08/08/2026 08/08/2024, 11/16, 08/03/2020, Additional history exists Cervical Cancer Screening 09/12/2029 HPV/Cotest 09/12/2029 09/12/2024, 08/29/2019 Pap Smear 09/12/2029 09/12/2024 RSV Patients and Patients Aged 60 years or older (1 - 1-dose 75+ series) 2038 Zoster Vaccines Completed 08/11/2022, 06/03/2022 HIB Vaccines Aged Out No longer eligi ble based on patient's age to complete this topic HPV Vaccines Aged Out No longer eligi ble based on patient's age to complete this topic Hepatitis A Vaccines Aged Out No long er eligible based on patient's age to complete this topic Hepatitis B Vaccines Aged Out No long er eligible based on patient's age to complete this topic IPV Vaccines Aged Out No longer eligi ble based on patient's age to complete this topic Meningococcal B Vaccine Aged Out No l onger eligible based on patient's age to complete [...] Procedure Name Priority Date/Time Associated Diagnosis Comments HPV DNA, LOW/HIGH RISK Routine 09/12/2024 10:00 AM EST PAP SMEAR Routine 09/12/2024 10:00 AM EST Encounter for gynecological examination (general) (routine) without abnormal findings BI MAMMOGRAM SCREENING TOMOSYNTHESIS BILATERAL Routine 08/08/2024 9:25 AM EST Screening for colon cancer ALBUMIN, RANDOM URINE W/CREATININE Routine 07/11/2024 10:05 AM EST Type 2 diabetes mellitus without complication, without long-term current use of insulin (CMS/HCC) Benign essential hypertension Tobacco dependence syndrome HEMOGLOBIN A1C Routine 07/11/2024 9:58 AM EST Type 2 diabetes mellitus without complication, without long-term current use of insulin ([facility]/HCC) Benign essential hypertension Tobacco dependence syndrome LIPID PANEL, STANDARD Routine 07/11/2024 9:58 AM EST Type 2 diabetes mellitus without complication, without long-term current use of insulin ([facility]/HCC) Benign essential hypertension Tobacco dependence syndrome from Last 3 Months or Most Recently Relevant to Health Maintenance Results * HPV DNA, Low/High Risk (09/12/2024 10:00 AM EST) HPV High Risk Negative Negative [facility] HPV Genotype 16 Negative Negative [facility] HPV Genotype 18 Negative Negative [facility] Comment:HPV testing performe d at [facility] (CLIA#[id number]), [address] [place] [address].Testing for HPV was performed using the [employer] Common Sensing0system. The presence of HPV in the female genital tract isassociated with a number of diseases, including cervicalcarcinoma. The HPV DNA high risk pool tests for HPV 31, 33,35, 39, 45, 51, 52, 56, 58, 59, 66 and 68. The testing forHPV 16 and 18 genotypes has also been performed. A positiveresult indicates detection of nucleic acid sequences fromone or more subtypes, whereas a negative result indicatessuch sequences were not detected. 09/12/2024 10:0 0 AM EST 09/13/2024 9:40 AM EST us Margaret Bergeron MD LAB BLOOD ORDERABLES Final Re sult [facility] [address] [place] [address] [phone] * Pap Smear (09/12/2024 10:00 AM EST) Swab Cervical swab / Unknown 09/12/2024 10:00 AM EST 09/13/2024 9:40 AM EST Narrative [facility] - 09/15/2024 7:58 AM EST ----- ------- Name: Belia Glaser Age/Sex: 59/F : 1965 Unit#: [id number] Attend Dr: Margaret Bergeron MD Re09/12/24 Status: DEP REF Location: HO.CHCLNP Disch: ----- ------- SPEC : [id number] RECD: 09/13/24 STATUS: BARBER GEORGE NUM: [id number] HONEY: 09/12/24-[address]: Margaret Bergeron MD ENTERED: 09/13/24-1008 SP TYPE: Pap Smr OTHR DR: ORDERED: Pap Smear Interpretation Satisfactory for evaluation. Negative for intraepithelial lesion or malignancy. No endocervical cells seen. HPV High Risk: Negative HPV Genotyping 16: Negative HPV Genotyping 18: Negative Clinical Information LMP: Postmenopausal Previous PAP test: 08/29/2019, WNL Material Received ThinPrep-Cervical ----- ------- Signed (signature on file) SYDNEE Bloom (ASCP) 09/15/24 0758 ----- ------- END OF REPORT Margaret Bergeron MD LAB CYTOLOGY ORDERABLES Final Result [facility] [address] [place] [phone] * BI Mammogram Screening Tomosynthesis Bilateral (08/08/2024 9:25 AM EST) Anatomical Region Laterality Modality Breast Bilateral Mammography 08/08/2024 9:25 AM EST Narrative 08/16/2024 1:47 PM EST [facility] [address] [place] [address] Mammography Report Signed Patient: Belia Glaser MR#: [id number] : 1965 Acct:[id number] Age/Sex: 59 / F ADM Date: 08/08/24 Loc: MAMMO Attending Dr: Margaret Bergeron MD Ordering Physician: Margaret Bergeron MD Results: 1Ne gatzulma Date of Service: 08/08/24 Follow Up: 1 Year From Orig ina Mammogram Procedure(s): MM tomosynthesis screening BI Accession Number(s): [id number] cc: Margaret Bergeron MD EXAMINATION: MM SCREENING [...] by: Rina Atkins DO 08/16/2024 01:44 PM [facility] Dictated By: Rina Atkins DO Signed By: <Electronically signed by Rina Atkins DO in OV> 08/16/24 1344 DD/ 0925 TD/TT: 08/08/24 0937 Crusher Screen Repairer: Procedure Note Donotuseinterpreter, Image - 08/16/2024 [facility] [address] [place], [place] [address] Mammography Report Signed Patient: Belia GlaserMR#: [id number] : 1965Acct:[id number] Age/Sex: 59 / FADM Date: 08/08/24 Loc: MAMMO Attending Dr: Margaret Bergeron MD Ordering Physician: Margaret Bergeron MDResults: 1Ne gative Date of Service: 08/08/24Follow Up: 1 Year From Orig ina Mammogram Procedure(s): MM tomosynthesis screening BI Accession Number(s): [id number] cc: Margaret Bergeron MD EXAMINATION: MM SCREENING [...] Rina Atkins DO 08/16/2024 01:44 PM EST Dictated By: Rina Atkins DO Signed By: <Electronically signed by Rina Atkins DO in OV> 08/16/24 1344 DD/ 0925 TD/TT: 08/08/24 0937 Crusher Screen Repairer: us Margaret Bergerno MD [facility] BI PROCEDURES Edited Resu lt - Final * Albumin, Random Urine W/Creatinine (07/11/2024 10:05 AM EST) Creatinine, Urine 98.18 mg/dL [facility] Microalbumin Urine 13.0 mg/L [facility] Microalbum Creatinine Ratio Ur 13.2 <30 ug/mg cr [facility] Comment:Albumin/Creatinine R atio Reference Ranges: Normal: < 30 ug/mg creatinine Microalbuminuria: 30 - 300 ug/mg creatinineClinical Albuminuria: > 300 ug/mg creatinine Urine (Urine, Random) 07/11/2024 10:05 AM EST 07/11/2024 2:15 PM EST Margaret Bergeron MD LAB URINE ORDERABLES Final Re sult Performing Organization Address [facility] de Phone Number [facility] [address] [place] [address] [phone] * Hemoglobin A1c (07/11/2024 9:58 AM EST) Hemoglobin A1c 5.7 <6.0 % [facility] Comment:Hemoglobin A1C Refer ence Range Adults: 4.8 - 6.0 % Non diabetic: < 6.0 % Goal: < 7.0 %Additional Action Suggested: > 8.0 %Note: Hemoglobin A1c results are invalid for patients with abnormal amounts of HbF. Blood transfusions may impact the HbA1c concentration in the patient sample. Estimated Average Glucose 117 mg/dL [facility] Comment:eAG = Estimated ave rage glucose which is %A1C expressed asaverage glucose, using the formula of the S6L-SsnxlgvRwpcwzo Glucose study (ADAG), Diabetes Care, Vol.31,#8,Feb. 2007 Blood Venous blood specimen / Unknown 07/11/2024 9:58 AM EST 07/11/2024 2:25 PM EST Margaret Bergeron MD LAB BLOOD ORDERABLES Final Re sult Performing Organization Address [facility] Co de Phone Number [facility] [address] [place] [phone] * Lipid Panel, Standard (07/11/2024 9:58 AM EST) Triglycerides 99 <150 mg/dL [facility] Comment:Desirable Triglyceri de: less than 150 mg/dLBorderline High Triglyceride 150-199 mg/dLHigh Triglyceride: 200-499 mg/dLVery High Triglyceride: greater than or equal to 5OO mg/dL Cholesterol 142 <200 mg/dL [facility] Comment:Desirable Cholestero l: less than 200 mg/dLBorderline High Cholesterol: 200-239 mg/dLHigh Cholesterol: greater than 239 mg/dL LDL Cholesterol Calculated 70 <100 mg/dL [facility] Comment:Desirable LDL: less than 100 mg/dLNear Optimal/Above Optimal LDL: 110- 129 mg/dLBorderline High LDL: 130-159 mg/dLHigh LDL: 160-189 mg/dLVery High LDL: greater than or equal to 190 mg/dL HDL Cholesterol 53 >40 mg/dL [facility] Comment:Desirable HDL: great er than 40 mg/dL Note: This HDL assay may give artificially low results in patients with liver disease. Blood Venous blood specimen / Unknown 07/11/2024 9:58 AM EST 07/11/2024 2:25 PM EST us Margaret Bergeron MD LAB BLOOD ORDERABLES Final Re sult Performing Organization Address City/State/[facility] Co de Phone Number [facility] [address] [place] [address] [phone] from Last 3 Months or Most Recently Relevant to Health Maintenance [place] [address] [address] [place] [id number] [place] [id number] Care Teams Oracle Reports Developer Relationship Specialty Start Date End Date Margaret Bergeron MD [address] [place] [address] [place] [address] PCP - General Family Medicine 07/19/18 [facility] 02/12/15
--- OUTSIDE RECORDS SUMMARY | 2025-03-30 10:36 | XMS_ITS | Encounter Summary ---
Author Organization [employer] Address [address] [facility] 7t [place] [address] Care Team Providers Care Precision Honer Name Role Phone Margaret Bergeron MD Primary Care Provider [phone] Encounter Details Date Type Department Care Team ([facility] Contact Info) Description 08/26/[address] [facility] MEDICINE [address] [place] [address] Margaret Bergeron MD [address] [place], [place] [phone] Social History Tobacco Use Types Packs/Day Years [...] as of this encounter Plan of Treatment Upcoming Encounters Date Type Department Care Team ([facility] Contact Info) Description 05/23/2025 9:00 AM EST Office Visit [facility] CHC MED & PEDS [address] [place], [place] [phone] Margaret Bergeron MD [address] [place] [address] documented as of this encounter Visit Diagnoses Not on filedocumented in this encounter Care Teams Precision Honer Relationship Specialty Start Date End Date Margaret Bergeron MD [address] [facility] [address] PCP - General Family Medicine 07/19/18 [facility] 02/12/15 documented as of this encounter
--- OUTSIDE RECORDS SUMMARY | 2025-03-30 10:36 | XMS_ITS | Encounter Summary ---
Author Organization [employer] Address [address] [facility] 7[address] [place] [address] Care Team Providers Care Area Safety Manager Name Role Phone Margaret Bergeron MD Primary Care Provider [phone] Encounter Details Date Type Department Care Team ([facility] Contact Info) Description 08/26/2022 Abstract [facility] MEDICINE [address] [place] [address] Margaret Bergeron MD [address] [place], [place] [phone] Social History Tobacco Use Types Packs/Day Years [...] Upcoming Encounters Date Type Department Care Team ([facility] Contact Info) Description 05/23/2025 9:00 AM EST Office Visit [facility] CHC MED & PEDS [address] [place], [place] [phone] Margaret Bergeron MD [address] [place] [address] documented as of this encounter Visit Diagnoses Not on filedocumented in this encounter Care Teams Area Safety Manager Relationship Specialty Start Date End Date Margaret Bergeron MD [address] [facility] [place] [address] PCP - General Family Medicine 07/19/18 [facility] 02/12/15 documented as of this encounter
--- OUTSIDE RECORDS SUMMARY | 2025-03-30 10:36 | XMS_ITS | Encounter Summary ---
Author Organization [employer] Address [address] [facility] 7t [place] [address] Care Team Providers Care Final Finisher Name Role Phone Margaret Bergeron MD Primary Care Provider [phone] Encounter Details Date Type Department Care Team ([facility] Contact Info) Description 02/15/2024 Telephone [facility] MEDICINE [address] [place], [place] [phone] Margaret Bergeron MD [address] [place] [address] Social History Tobacco Use Types Packs/Day Years [...] Upcoming Encounters Date Type Department Care Team ([facility] Contact Info) Description 05/23/2025 9:00 AM EST Office Visit [facility] CHC MED & PEDS [address] [place] [address] Margaret Bergeron MD [address] [place] [address] documented as of this encounter Visit Diagnoses Not on filedocumented in this encounter Care Teams Final Finisher Relationship Specialty Start Date End Date Margaret Bergeron MD [address] [place] [address] PCP - General Family Medicine 07/19/18 [facility] 02/12/15 documented as of this encounter
--- OUTSIDE RECORDS SUMMARY | 2025-03-30 10:36 | XMS_ITS | Encounter Summary ---
Author Organization [employer] Address [address] [facility] [address]t [place] [address] Care Team Providers Care Cell Builder Name Role Phone Margaret Bergeron MD Primary Care Provider [phone] Reason for Visit * Reason Onset Date Comments FYI 08/24/2023 Encounter Details Date Type Department Care Team (Late Contact Info) Description 08/24/2023 Telephone [facility] MED [facility] PEDS [address] [place] [address] Margaret Bergeron MD [address] [place] [address] FYI Social History Tobacco Use Types Packs/Day [...] 4:49 PM EST TC from Leora with [facility] informing that pt will be renewed for home care and medication management on Aug 29, 2023 for another 60 days for 2 times a week. Please contact Leora @ [phone] documented in this encounter Plan of Treatment Upcoming Encounters Date Type Department Care Team (Late Contact Info) Description 05/23/2025 9:00 AM EST Office Visit [facility] MED [facility] PEDS [address] [place] [address] Margaret Bergeron MD [address] [place] [address] documented as of this encounter Visit Diagnoses Not on filedocumented in this encounter Care Teams Cell Builder Relationship Specialty Start Date End Date Margaret Bergeron MD [address] [place] [address] PCP - General Family Medicine 07/19/18 [facility] 02/12/15 documented as of this encounter
[2025-03-30 14:31] LABS: Hematocrit 32.6 % (37.0-47.0); Hemoglobin 11.2 g/dl (12.0-16.0); Mean Corpuscular HGB Conc 34.4 g/dl (31.0-35.0); Mean Corpuscular Hemoglobin 28.7 pg (27.0-33.0); Mean Corpuscular Volume 83.6 fL (80.0-98.0); NRBC Abs Auto 0.000 X10*3/uL (0.0-0.012); NRBC Pct Auto 0.0 /100WBC (0.0-0.2); Platelet Count 178 X10*3/uL (160-400); Red Blood Count 3.90 X10*6/uL (4.20-5.50); White Blood Count 4.9 X10*3/uL (4.8-10.8)
[2025-03-30 14:45] LABS: Hemoglobin A1C 124.0350 umol/L; Total Hemoglobin (HGBA1C) 2935.3676 umol/L
[2025-03-30 15:08] LABS: Alanine Aminotransferase 17 U/L (0-31); Albumin Level 4.2 g/dL (3.5-5.0); Alkaline Phosphatase 55 U/L (39-117); Anion Gap 12 (12-20); Aspartate Amino Transferase 28 U/L (5-31); Blood Urea Nitrogen 12 mg/dL (9-16); Calcium 9.0 mg/dL (8.4-10.2); Carbon Dioxide 25 mmol/L (22-29); Chloride 106 mmol/L (96-108); Cholesterol 108 mg/dL (<200); Estimated Glomerular Filt Rate 49; HDL Cholesterol 37 mg/dL (>40); Potassium 3.6 mmol/L (3.3-5.1); Sodium 139 mmol/L (135-145); Total Protein 7.6 g/dL (6.5-8.0); Triglycerides 92 mg/dL (<150)
== END 2025-03-30 09:27 | disposition home or self-care (01) ==
LOC: HO.CHCLDS 09:26
PROVIDERS: PCP Pediatrics; Visit Provider Registered Nurse
DX: Z79.899 Other long term (current) drug therapy (principal)
CPT/HCPCS: 36415; 80048; 80061; 80076; 82306; 83036; 84146; 85027